=== PATIENT | male | born 2005 | race Caucasian/White ===

== ENCOUNTER 2024-09-24 13:30 | Emergency (ER) | payer OTHER ==
[~2024-09-24] VITALS: Ht 177.8 cm; Wt 90.2 kg
[2024-09-24] MEDS ORDERED: IBUP-1114 PO (13:46)
[2024-09-24] MEDS ORDERED: MELO15TA28 PO (13:46)
[2024-09-24] MEDS: PERCOCET 5MG/325MG TAB PO ONE (17:27)
[2024-09-24] MEDS: OXYCODONE/APAP 5MG/325MG(HOME DOSE PACK) PO ONE (18:20)
[2024-09-24 18:28] VITALS: BP 144/77; TEMP 98.8; O2SAT 100
== END 2024-09-24 18:29 | disposition home or self-care (01) ==
LOC: M ED 13:30
DX: M25.572 Pain in left ankle and joints of left foot (principal); Z79.1 Long term (current) use of non-steroidal anti-inflammatories (NSAID); Z79.899 Other long term (current) drug therapy